=== PATIENT | male | born 1945 | race Caucasian/White ===

== ENCOUNTER 2024-02-10 09:51 | Emergency (ER) | payer SELFPAY ==
--- NOTE | 2024-02-10 10:14 | ERPHSYRPT ---
- History of Present Illness Time Seen by Provider: 02/10/24 09:53 Historian: patient, EMS Exam Limitations: no limitations Physician History: 78-year-old male with history of sick sinus status post pacemaker placement was getting ready to get on a deer stand with sudden onset moderate to severe sharp shooting pain across mid chest, on no significant aggravating and partial relief with taking morphine by EMS. Patient was also hypoxic on arrival in the ER despite being on 2 L oxygen to 87%, increased to 3 L and currently in no 90s. Reports coughing up thick yellow sputum as well for the last couple of days. No fever or chills reported. No history of CAD. Reports getting short of breath lately with exertion. Nitro Today/Relief: no nitro taken today Aspirin Treatment Today: no aspirin today Allergies/Adverse Reactions: No Known Drug Allergies Allergy (Verified 02/10/24 11:02) Home Medications: Apixaban [Eliquis] 1 tab PO DAILY 02/10/24 [History] Escitalopram Oxalate [Lexapro] 10 mg PO DAILY 02/10/24 [History] Midodrine HCl 1.5 tab PO TID 02/10/24 [History] Ropinirole 2Mg [Requip 2Mg Tab] 0.25 mg PO DAILY 02/10/24 [History] - Review of Systems Constitutional: No Symptoms Eyes: No Symptoms Ears, Nose, & Throat: No Symptoms Respiratory: Cough, Dyspnea, Dyspnea on Exertion ([place]) Cardiac: Chest Pain Abdominal/Gastrointestinal: No Symptoms Genitourinary Symptoms: No Symptoms Neurological: No Symptoms Psychological: No Symptoms Hematologic/Lymphatic: No Symptoms Immunological/Allergic: No Symptoms - Nursing Vital Signs Nursing Vital Signs: Initial Vital Signs Temperature 97.6 F 02/10/24 09:55 Pulse Rate 72 02/10/24 09:55 Respiratory Rate 22 02/10/24 09:55 Blood Pressure 111/73 02/10/24 09:55 O2 Sat by Pulse Oximetry 87 L 02/10/24 09:55 Pain Scale Pain Intensity 10 - Physical Exam General Appearance: no apparent distress Eye Exam: PERRL/EOMI Ears, Nose, Throat Exam: normal ENT inspection Neck Exam: normal inspection, non-tender, supple, full range of motion Respiratory Exam: normal breath sounds, lungs clear Cardiovascular Exam: regular rate/rhythm, normal heart sounds Gastrointestinal/Abdomen Exam: soft, No tenderness Back Exam: normal range of motion Extremity Exam: normal inspection, normal range of motion Neurologic Exam: alert, oriented x 3, cooperative Skin Exam: normal color SpO2 Interpretation: O2 applied SpO2: 94 O2 Delivery: Nasal Cannula - Course EKG Interpreted by Me: RATE (70), Sinus Rhythm, NORMAL AXIS, NORMAL INTERVALS, Other (Mild ST depression in anterolateral leads.) Ordered Tests: Active Orders 24 hr Category Date Time Status Teaching Pastor STAT Care 02/10/24 10:11 Completed EKG-ER Only STAT Care 02/10/24 10:11 Completed IV Insertion STAT Care 02/10/24 10:11 Completed CHEST 1 VIEW (PORTABLE) Stat Exams 02/10/24 10:11 Completed CHEST WITH CONTRAST [CT] Stat Exams 02/10/24 11:08 Completed BLOOD CULTURE Stat Lab 02/10/24 11:04 Received CBC W DIFF Stat Lab 02/10/24 10:21 Completed CK-Creatinine Phosphokinase Stat Lab 02/10/24 10:21 Completed CMP Stat Lab 02/10/24 10:21 Completed CULTURE,URINE Stat Lab 02/10/24 11:41 Received Lactic Acid Stat Lab 02/10/24 10:30 Completed Lactic Acid Stat Lab 02/10/24 12:37 Completed MAGNESIUM Stat Lab 02/10/24 10:21 Completed Manual Differential NC Stat Lab 02/10/24 10:21 Completed NT PRO BNPII Stat Lab 02/10/24 10:21 Completed PROCALCITONIN Stat Lab 02/10/24 Completed TROPONIN Q4H Lab 02/10/24 10:21 Completed TROPONIN Q4H Lab 02/10/24 14:15 Completed UA W/RFX UR CULTURE Stat Lab 02/10/24 11:41 Completed Respiratory Therapy Assessment DAILY RT 02/10/24 10:28 Completed Medication Summary Discontinued Medications Generic Name Dose Route Start Last Admin Trade Name Freq PRN Reason Stop Dose Admin Albuterol/Ipratropium 3 ml 02/10/24 10:11 02/10/24 10:25 Ipratropium/Albuterol Sulfate 3 Ml Ampul.Neb IH 02/10/24 10:12 3 ml STAT ONE Administration Albuterol/Ipratropium Confirm 02/10/24 10:19 Ipratropium/Albuterol Sulfate 3 Ml Ampul.Neb Administered 02/10/24 10:20 Dose 3 ml IH .STK-MED ONE Fentanyl Citrate 50 mcg 02/10/24 10:11 02/10/24 10:25 Fentanyl Citrate 100 Mcg/2 Ml* Vial IV 02/10/24 10:12 50 mcg STAT ONE Administration Fentanyl Citrate Confirm 02/10/24 10:24 Fentanyl Citrate 100 Mcg/2 Ml* Vial Administered 02/10/24 10:25 Dose 100 mcg .ROUTE .STK-MED ONE Fentanyl Citrate Confirm 02/10/24 11:37 Fentanyl Citrate 100 Mcg/2 Ml* Vial Administered 02/10/24 11:38 Dose 100 mcg .ROUTE .STK-MED ONE Fentanyl Citrate 50 mcg 02/10/24 11:50 02/10/24 11:50 Fentanyl Citrate 100 Mcg/2 Ml* Vial IV 02/10/24 11:51 50 mcg STAT ONE Administration Fentanyl Citrate 50 mcg 02/10/24 13:14 02/10/24 13:28 Fentanyl Citrate 100 Mcg/2 Ml* Vial IV 02/10/24 13:15 50 mcg STAT ONE Administration Fentanyl Citrate Confirm 02/10/24 13:20 Fentanyl Citrate 100 Mcg/2 Ml* Vial Administered 02/10/24 13:21 Dose 100 mcg .ROUTE .STK-MED ONE Ceftriaxone Sodium 2 gm in 100 mls @ 200 mls/hr 02/10/24 10:30 02/10/24 11:22 Rocephin 2 Gm/100 Ml Nacl IV 02/10/24 10:59 Not Given STAT ONE Azithromycin 500 mg in 250 mls @ 250 mls/hr 02/10/24 10:30 02/10/24 13:16 Zithromax 500 Mg/ 250 Ml Nacl Premix IV 02/10/24 11:29 Infused STAT STA Infusion Piperacillin Sod/Tazobactam 100 mls @ 200 mls/hr 02/10/24 10:45 02/10/24 11:11 Sod 3.375 gm/ Sodium Chloride IV 02/10/24 11:14 200 mls/hr STAT ONE Administration Sodium Chloride Confirm 02/10/24 11:11 Sodium Chloride 100ml Mini-Bag Plus Administered 02/10/24 11:12 Dose 100 mls @ ud IV .STK-MED ONE Azithromycin Confirm 02/10/24 12:13 Zithromax 500 Mg/ 250 Ml Nacl Premix Administered 02/10/24 12:14 Dose 500 mg in 250 mls @ ud IV .STK-MED ONE Sodium Chloride 1,000 mls @ 125 mls/hr 02/10/24 13:00 02/10/24 14:05 Sodium Chloride 0.9% 1000 Ml IV 03/11/24 12:59 Infused .Q8H KRUPA Infusion Sodium Chloride Confirm 02/10/24 12:58 Sodium Chloride 0.9% 1000 Ml Administered 02/10/24 12:59 Dose 1,000 mls @ ud .ROUTE .STK-MED ONE Morphine Sulfate 4 mg 02/10/24 14:12 02/10/24 14:14 Morphine Sulfate 4 Mg/Ml Injection IV 02/10/24 14:13 4 mg STAT ONE Administration Morphine Sulfate Confirm 02/10/24 14:13 Morphine Sulfate 4 Mg/Ml Injection Administered 02/10/24 14:14 Dose 4 mg .ROUTE .STK-MED ONE Piperacillin Sod/Tazobactam Sod Confirm 02/10/24 11:10 Piperacillin/Tazobactam Sodium 3.375 Gm Vial Administered 02/10/24 11:11 Dose 3.375 gm IV .STK-MED ONE Lab/Rad Data: Laboratory Result Diagrams 02/10/24 10:21 02/10/24 10:21 Laboratory Results 02/10/24 02/10/24 02/10/24 Range/Units Unknown 14:15 12:37 WBC (4.23-9.07) x10^3/uL RBC (4.63-6.08) x10^6/uL Hgb (13.7-17.5) g/dL Hct (40.1-51.0) % MCV (79.0-92.2) fL MCH (25.7-32.2) pg MCHC (32.3-36.5) g/dL RDW (11.6-14.4) % Plt Count (163-337) x10^3/uL MPV (9.4-12.4) fL Segmented Neutrophils (34.0-67.9) % Band Neutrophils (0.0-2.0) % Lymphocytes (Manual) (21.8-53.1) % Monocytes (Manual) (5.3-12.2) % Toxic Granulation Platelet Estimate (NORMAL) RBC Morphology Sodium (135-145) mmol/L Potassium (3.5-5.1) mmol/L Chloride (98-107) mmol/L Carbon Dioxide (22-30) mmol/L Anion Gap (5-15) MEQ/L BUN (9-20) mg/dL Creatinine (0.66-1.25) mg/dL Estimated GFR ML/MIN Glucose (74-106) mg/dL Lactic Acid 2.4 H (0.4-2.0) Calcium (8.4-10.2) mg/dL Magnesium (1.6-2.3) mg/dL Total Bilirubin (0.2-1.3) mg/dL AST (17-59) U/L ALT (0-50) U/L Alkaline Phosphatase (38-126) U/L Creatine Kinase (55-170) U/L Troponin I 0.020 (0.000-0.033) ng/mL NT-Pro-B Natriuret Pep (<300) pg/mL Serum Total Protein (6.3-8.2) g/dL Albumin (3.5-5.0) g/dL Procalcitonin 0.117 H (0.030-0.080) ng/mL Urine Color (Yellow) Urine Appearance (Clear) Urine pH (4.6-8.0) Ur Specific [place] (1.005-1.030) Urine Protein (Negative) Urine Glucose (UA) (Negative) mg/dL Urine Ketones (Negative) Urine Blood (Negative) Urine Nitrite (Negative) Urine Bilirubin (Negative) Urine Urobilinogen (0.2) mg/dL Ur Leukocyte Esterase (Negative) U Hyaline Cast (Auto) (0-2) /LPF Urine Microscopic RBC (0-5) /HPF Urine Microscopic WBC (0-5) /HPF Ur Epithelial Cells (None Seen) /HPF Urine Bacteria (None Seen) /HPF Urine Culture Reflexed (NO) 02/10/24 02/10/24 02/10/24 Range/Units 11:41 10:30 10:21 WBC (4.23-9.07) x10^3/uL RBC (4.63-6.08) x10^6/uL Hgb (13.7-17.5) g/dL Hct (40.1-51.0) % MCV (79.0-92.2) fL MCH (25.7-32.2) pg MCHC (32.3-36.5) g/dL RDW (11.6-14.4) % Plt Count (163-337) x10^3/uL MPV (9.4-12.4) fL Segmented Neutrophils (34.0-67.9) % Band Neutrophils (0.0-2.0) % Lymphocytes (Manual) (21.8-53.1) % Monocytes (Manual) (5.3-12.2) % Toxic Granulation Platelet Estimate (NORMAL) RBC Morphology Sodium (135-145) mmol/L Potassium (3.5-5.1) mmol/L Chloride (98-107) mmol/L Carbon Dioxide (22-30) mmol/L Anion Gap (5-15) MEQ/L BUN (9-20) mg/dL Creatinine (0.66-1.25) mg/dL Estimated GFR ML/MIN Glucose (74-106) mg/dL Lactic Acid 2.8 H (0.4-2.0) Calcium (8.4-10.2) mg/dL Magnesium (1.6-2.3) mg/dL Total Bilirubin (0.2-1.3) mg/dL AST (17-59) U/L ALT (0-50) U/L Alkaline Phosphatase (38-126) U/L Creatine Kinase (55-170) U/L Troponin I < 0.012 (0.000-0.033) ng/mL NT-Pro-B Natriuret Pep (<300) pg/mL Serum Total Protein (6.3-8.2) g/dL Albumin (3.5-5.0) g/dL Procalcitonin (0.030-0.080) ng/mL Urine Color Dark Yellow (Yellow) Urine Appearance Turbid A (Clear) Urine pH 5.0 (4.6-8.0) Ur Specific [place] >=1.030 A (1.005-1.030) Urine Protein 300 A (Negative) Urine Glucose (UA) 100 A (Negative) mg/dL Urine Ketones Trace A (Negative) Urine Blood Large A (Negative) Urine Nitrite Negative (Negative) Urine Bilirubin Small A (Negative) Urine Urobilinogen 1.0 A (0.2) mg/dL Ur Leukocyte Esterase Small A (Negative) U Hyaline Cast (Auto) >50 A (0-2) /LPF Urine Microscopic RBC 21-50 A (0-5) /HPF Urine Microscopic WBC 11-20 A (0-5) /HPF Ur Epithelial Cells Many A (None Seen) /HPF Urine Bacteria Rare A (None Seen) /HPF Urine Culture Reflexed YES (NO) 02/10/24 02/10/24 Range/Units 10:21 10:21 WBC 29.1 H* (4.23-9.07) x10^3/uL RBC 3.67 L (4.63-6.08) x10^6/uL Hgb 11.9 L (13.7-17.5) g/dL Hct 34.9 L (40.1-51.0) % MCV 95.1 H (79.0-92.2) fL MCH 32.4 H (25.7-32.2) pg MCHC 34.1 (32.3-36.5) g/dL RDW 12.8 (11.6-14.4) % Plt Count 280 (163-337) x10^3/uL MPV 9.8 (9.4-12.4) fL Segmented Neutrophils 80 H (34.0-67.9) % Band Neutrophils 4 H (0.0-2.0) % Lymphocytes (Manual) 10 L (21.8-53.1) % Monocytes (Manual) 6 (5.3-12.2) % Toxic Granulation 1+ Platelet Estimate NORMAL (NORMAL) RBC Morphology NORMAL Sodium 140 (135-145) mmol/L Potassium 3.9 (3.5-5.1) mmol/L Chloride 106 (98-107) mmol/L Carbon Dioxide 21 L (22-30) mmol/L Anion Gap 15.7 H (5-15) MEQ/L BUN 30 H (9-20) mg/dL Creatinine 1.32 H (0.66-1.25) mg/dL Estimated GFR 54.9 ML/MIN Glucose 179 H (74-106) mg/dL Lactic Acid (0.4-2.0) Calcium 9.7 (8.4-10.2) mg/dL Magnesium 2.1 (1.6-2.3) mg/dL Total Bilirubin 0.40 (0.2-1.3) mg/dL AST 110 H (17-59) U/L ALT 88 H (0-50) U/L Alkaline Phosphatase 52 (38-126) U/L Creatine Kinase 601 H (55-170) U/L Troponin I (0.000-0.033) ng/mL NT-Pro-B Natriuret Pep 295 (<300) pg/mL Serum Total Protein 7.0 (6.3-8.2) g/dL Albumin 4.0 (3.5-5.0) g/dL Procalcitonin (0.030-0.080) ng/mL Urine Color (Yellow) Urine Appearance (Clear) Urine pH (4.6-8.0) Ur Specific [place] (1.005-1.030) Urine Protein (Negative) Urine Glucose (UA) (Negative) mg/dL Urine Ketones (Negative) Urine Blood (Negative) Urine Nitrite (Negative) Urine Bilirubin (Negative) Urine Urobilinogen (0.2) mg/dL Ur Leukocyte Esterase (Negative) U Hyaline Cast (Auto) (0-2) /LPF Urine Microscopic RBC (0-5) /HPF Urine Microscopic WBC (0-5) /HPF Ur Epithelial Cells (None Seen) /HPF Urine Bacteria (None Seen) /HPF Urine Culture Reflexed (NO) - Progress Progress: improved, re-examined Air Movement: fair Progress Note: 02/10/24 13:37 78-year-old is evaluated in the ER for sudden onset chest pain while he tried to get on the deer stand. Moderate to severe sharp. Has minimal tenderness in the right anterior chest wall with palpation. Has decreased air movement bilaterally especially in the lower bases. He is on 2 L oxygen with saturation in the low 90s. He is given neb treatment and symptomatic treatment for pain, on reevaluation feeling better. Chest x-ray showed bilateral airspace disease with some haziness especially on the right side, official report is pending. Patient has a white count of 29, lactate of 2.8 and procalcitonin 0.11, given a dose of Zosyn and Zithromax along with fluids/chemistries showed some element of CKD with a creatinine of 1.3 and GFR of 54 and liver enzymes in low 100s. Patient does have UTI which would be covered by antibiotics. Does not have any abdominal tenderness. Patient has history of orthostatic hypotension and takes midodrine and currently blood pressure is in low 100s. He is also on Eliquis. Mild rhabdo with a CK level of 601. I have obtained CTA chest which is negative for PE but did show hydropneumothorax on the right side with mild mediastinal push to the left. On further questioning patient reported that he fell more than 2 weeks ago from a 6 feet ladder as he does have 4th through 10th posterior right rib fracture with some comminuted element. Denies any other injury or pain anywhere else. I believe patient would benefit with transfer to facility with trauma services and since this happened more than 2 weeks ago, do not think needs immediate chest tube insertion but after consultation with trauma services. I have discussed and called [facility] who are not accepting trauma at this moment. [place] [facility] [place]atica at [facility], reviewed history, workup and agreed with transfer. I have shared the results of workup with patient and family and plan of transfer which they understand and agree. Blood Culture(s) Obtained: Yes Antibiotics given: Yes Discussed with Dr.: Other (Dr. Gatica [facility]) Will see patient in: ED Counseled pt/family regarding: lab results, diagnosis, rad results - Departure Departure Disposition: Transfer Clinical Impression: Hydropneumothorax, Multiple rib fractures, Pneumonia, Sepsis, Rhabdomyolysis Condition: Fair Critical Care Time: Yes Critical Care Time(excluding separately billable procedures): Critical 30-74 mins Referrals: Provider,Unknown [Primary Care Provider] - Follow up/PCP as directed
[2024-02-10] MEDS ORDERED: DUONEB 0.5-3 MG/3 ml Neb IH ONE (10:19)
[2024-02-10 10:23] LABS: Hematocrit 34.9 % (40.1-51.0); Hemoglobin 11.9 g/dL (13.7-17.5); Mean Cell Volume 95.1 fL (79.0-92.2); Mean Corpuscular Hemoglobin 32.4 pg (25.7-32.2); Mean Corpuscular Hgb Concent. 34.1 g/dL (32.3-36.5); Mean Platelet Volume 9.8 fL (9.4-12.4); Platelet Count 280 x10^3/uL (163-337); Red Blood Count 3.67 x10^6/uL (4.63-6.08); Red Cell Distribution Width 12.8 % (11.6-14.4)
[2024-02-10] MEDS ORDERED: SUBLIMAZE 100 MCG/2 ML ONE ×3 (10:24→13:20)
[2024-02-10] MEDS: SUBLIMAZE 100 MCG/2 ML IV ONE ×3 (10:25→13:28)
[2024-02-10] MEDS: DUONEB 0.5-3 MG/3 ml Neb IH ONE (10:25)
[2024-02-10 10:34] VITALS: TEMP 97.6
[2024-02-10 10:44] LABS: White Blood Count 29.1 x10^3/uL (4.23-9.07)
[2024-02-10 10:46] LABS: ANION GAP 15.7 MEQ/L (5-15); BILIRUBIN,TOTAL 0.4 mg/dL (0.2-1.3); Calcium 9.7 mg/dL (8.4-10.2); Creatinine 1 1.32 mg/dL (0.66-1.25); EST GLOMERULAR FILTRATION RATE 54.9 ML/MIN; MAGNESIUM 2.1 mg/dL (1.6-2.3); Potassium 3.9 mmol/L (3.5-5.1)
[2024-02-10] MEDS ORDERED: PIPERACILLIN/TAZOBACTAM IV ONE (11:10)
[2024-02-10] MEDS: PIPERACILLIN/TAZOBACTAM 3.375 GM in Sodium Chloride 100ML MINI-BAG PLUS 100 ML IV ONE (11:11)
[2024-02-10] MEDS ORDERED: Sodium Chloride 100ML MINI-BAG PLUS 100 ML IV ONE (11:11)
[2024-02-10] MEDS: ROCEPHIN 2 GM/100 ML NACL 2 GM/100 ML IVPB IV ONE (11:22)
[2024-02-10 11:32] LABS: BAND 4 % (0.0-2.0); Lymphocytes 10 % (21.8-53.1); Monocyte 6 % (5.3-12.2); Neutrophils 80 % (34.0-67.9); Platelet Estimate NORMAL (NORMAL); Total Cells Counted 100; Toxic Granulation 1+
[2024-02-10] MEDS ORDERED: Zithromax 500 MG/ 250 ML NaCl Premix 500 MG/250 ML IVPB IV ONE (12:13)
[2024-02-10] MEDS: Zithromax 500 MG/ 250 ML NaCl Premix 500 MG/250 ML IVPB IV STA (12:14)
[2024-02-10 12:23] LABS: Appearance Turbid (Clear); Bacteria Rare /HPF (None Seen); Bilirubin Small (Negative); Blood Large (Negative); Epithelial Cells Many /HPF (None Seen); Glucose, Urine 100 mg/dL (Negative); Hyaline Casts >50 /LPF (0-2); Ketones Trace (Negative); Leukocyte Esterase Small (Negative); Nitrite Negative (Negative); Protein,Urine Dip 300 (Negative); RBC 21-50 /HPF (0-5); Specific Gravity >=1.030 (1.005-1.030)
--- NOTE | 2024-02-10 12:52 | XRAY ---
CLINICAL HISTORY: chest pain, worsening COMPARISON: None. TECHNIQUE: Contiguous 3.[address] images of the chest were acquired with the administration of intravenous contrast. Coronal and sagittal reconstructions were obtained. One of the following dose reduction techniques were utilized for this exam: Automated exposure control, adjustment of the mA and/or kV according to patient size, and use of iterative reconstruction FINDINGS: Lungs: Right moderate hydro-pneumothorax, the pneumothorax measuring 2 cm, in maximum depth, with partial right lung collapse. Background of bilateral mild subpleural fibrotic changes with mild traction bronchiectasis at lower lobes, more obvious on the left side. Free left pleural surface. Mediastinum: Mild mediastinal shift to the left side. No mediastinal mass, or abnormal lymphadenopathy. Hilar Structures: Normal size and configuration, no enlargement. Heart and Great Vessels: Normal heart size and configuration. No pericardial effusion. Normal caliber and course of the thoracic aorta and other great vessels, however, atherosclerosis was noted. No significant aneurysm. Normal enhancement of the great vessels post-contrast. Pulmonary Arteries: No evidence of pulmonary embolism. Normal size and course of the pulmonary arteries. Esophagus: Normal course and caliber. Mild upper dilatation noted. Bones: Multiple comminuted fractures from the 4th to 10th right side posterior ribs were noted with displaced fragments. No lytic/sclerotic lesions. Normal bone density and alignment. Chest Wall: No masses or soft tissue abnormalities. Upper Abdomen: Visualized portions of the liver and spleen show tiny calcific foci suggesting granulomas. Left renal cyst. Thyroid: Normal size and morphology. No nodules or masses. IMPRESSION: 1. Right hydro-pneumothorax causing mild mediastinum shift to left side, due to multiple right posterior rib fractures from 4th to 10th rib, with displaced bony fragments, for urgent review. 2. 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 [facility] ER was called at [phone] at 11:45 AM RABBLER, 02/10/2024 and Nurse Jessenia was informed about the presence of critical medical findings. Electronically Signed by: Deonte Haynes MD. (02/10/2024 12:47:27 EST)
[2024-02-10] MEDS ORDERED: Sodium Chloride 0.9% 1000 ML 1,000 ML ONE (12:58)
[2024-02-10] MEDS: Sodium Chloride 0.9% 1000 ML 1,000 ML IV SCH (12:59)
[2024-02-10 14:11] VITALS: BP 107/55; PULSE 67; RESP 17
[2024-02-10 14:13] VITALS: O2SAT 94
[2024-02-10] MEDS ORDERED: MORPHINE SULFATE 4 MG INJ ONE (14:13)
[2024-02-10] MEDS: MORPHINE SULFATE 4 MG INJ IV ONE (14:14)
--- NOTE | 2024-02-10 14:22 | XRAY ---
Indication: Chest pain. Comparison: None Portable chest demonstrates diffuse pulmonary edema, right greater than left with tiny bibasilar effusions. Also CT proven tiny right pneumothorax. Heart not enlarged with left pacemaker. Bony thorax intact with osteopenia.
== END 2024-02-10 14:30 | disposition short-term general hospital (02) ==
LOC: ED 09:51
DX: R07.9 Chest pain, unspecified (principal); N39.0 Urinary tract infection, site not specified; R07.81 Pleurodynia; W17.89XD Other fall from one level to another, subsequent encounter; J18.9 Pneumonia, unspecified organism; M62.82 Rhabdomyolysis; J94.8 Other specified pleural conditions; Z79.01 Long term (current) use of anticoagulants
CPT/HCPCS: 36415; 71045; 71260; 80053; 81001; 82550; 83605; 83735; 83880; 84145; 84484; 85025; 87040; 87086; 93005; 93041; 94640; 96365; 96367; 96374; 96375; 96376; 99285; 99291; J0456; J2270; J3010; A9270-GY